=== PATIENT | male | born 1985 | race African-American/Black ===

== ENCOUNTER → 2023-05-20 | Outpatient (CLI) | payer OTHER ==
--- NOTE | 2023-05-20 12:21 | US ---
EXAMINATION TYPE: US kidneys/renal and bladder DATE OF EXAM: 05/20/2023 COMPARISON: NONE CLINICAL INDICATION: Male, 37 years old with history of N23 UNSPECIFIED RENAL COLIC; bilateral flank pain for months EXAM MEASUREMENTS: Right Kidney: 10.5 x 4.2 x 4.6 cm Left Kidney: 9.8 x 4.8 x 6.0 cm Right Kidney: prominent renal pelvis versus mild hydronephrosis Left Kidney: No hydronephrosis or masses seen Bladder: wnl Bilateral Jets seen: yes No nephrolithiasis is seen. No masses are identified. The urinary bladder is anechoic. Bilateral u reteral jets are seen. IMPRESSION: Borderline to mild right-sided hydronephrosis.
== END | disposition home or self-care (01) ==
LOC: RADUSWWP 10:19
PROVIDERS: ATTEND Family Medicine
DX: N23 Unspecified renal colic (principal); N13.30 Unspecified hydronephrosis
CPT/HCPCS: 76770